=== PATIENT | female | born 1950 | race Hispanic/Latino ===

== ENCOUNTER 2017-07-20 19:18 | Emergency (ER) | payer MEDICARE ==
[~2017-07-20 19:18] MED LIST: LEVO500T2 PO; METO-409 PO
[2017-07-20 19:52] LABS: BASOPHILS % (AUTO) 0.3 % (0.0-5.0); EOSINOPHILS % (AUTO) 4.6 % (0.0-8.0); HEMATOCRIT 42.9 % (36-48); LYMPHOCYTES % (AUTO) 18.2 % (21.0-51.0); MEAN CORPUSCULAR HEMOGLOBIN 30.7 pg (27.0-33.0); MEAN CORPUSCULAR HGB CONC 34.7 g/dL (32.0-36.0); MEAN CORPUSCULAR VOLUME 88.5 fL (79-99); MONOCYTES % (AUTO) 5.9 % (3.0-13.0); PLATELET COUNT (AUTO) 200 K/uL (130-400); RED BLOOD CELL COUNT(AUTO) 4.84 MIL/uL (4.00-5.50); RED CELL DISTRIBUTION WIDTH 13.2 % (11.0-15.5); WHITE BLOOD COUNT (AUTO) 10.4 K/uL (4.8-10.8)
[2017-07-20] MEDS ORDERED: ONDANSETRON ODT 4 MG TAB ONE (19:59)
[2017-07-20] MEDS ORDERED: ASPIRIN 325 MG TABLET ONE (19:59)
[2017-07-20 20:05] LABS: INR 0.98 (0.85-1.15); PARTIAL THROMBOPLASTIN TIME 24.8 SEC (26.3-35.5); POTASSIUM 3.5 mmol/L (3.5-5.1); PROTHROMBIN TIME 10.3 SEC (9.6-11.6)
[2017-07-20 20:15] LABS: RAPID GROUP A STREP NEGATIVE (NEGATIVE)
[2017-07-20 20:24] LABS: B-TYPE NATRIURETIC PEPTIDE < 5 pg/mL (0-100)
[2017-07-20] MEDS ORDERED: LIDOCAINE HCL 2% VISCOUS 15 ML UDCUP ONE (20:29)
[2017-07-20] MEDS ORDERED: MAG HYDROX/AL HYDROX/SIMETH ES 30 ML SUSP UDCUP ONE (20:30)
[2017-07-20 20:34] LABS: ALBUMIN 4.1 g/dL (3.5-5.0); BILIRUBIN,TOTAL 0.7 mg/dL (0.2-1.0); CREATINE KINASE MB 2.1 ng/mL (0.5-3.6); TOTAL PROTEIN, SERUM 8.2 g/dL (6.0-8.3)
== END 2017-07-20 21:23 | disposition home or self-care (01) ==
LOC: EDH 19:18
DX: K21.9 Gastro-esophageal reflux disease without esophagitis (principal); K29.70 Gastritis, unspecified, without bleeding; R07.9 Chest pain, unspecified; I10 Essential (primary) hypertension; Z90.49 Acquired absence of other specified parts of digestive tract
CPT/HCPCS: 36415; 71045; 80053; 82550; 82553; 83605; 83690; 83874; 83880; 84484; 85025; 85610; 85730; 87804; 87880; 93005; 94761

== ENCOUNTER → 2018-05-20 | Outpatient (CLI) | payer MEDICARE | END | disposition home or self-care (01) | LOC: RAH 13:08 | PROVIDERS: ATTEND Family Medicine | DX: N60.01 Solitary cyst of right breast (principal); N60.02 Solitary cyst of left breast | CPT/HCPCS: 76641; 77066 ==

== ENCOUNTER 2019-03-15 09:10 | Emergency (ER) | payer MEDICARE ==
[2019-03-15 09:41] LABS: BASOPHILS % (AUTO) 0.7 % (0.0-5.0); EOSINOPHILS % (AUTO) 1.1 % (0.0-8.0); HEMATOCRIT 44.3 % (36-48); LYMPHOCYTES % (AUTO) 4.2 % (21.0-51.0); MEAN CORPUSCULAR HGB CONC 33.6 g/dL (32.0-36.0); MEAN CORPUSCULAR VOLUME 89.1 fL (79-99); MONOCYTES % (AUTO) 10.8 % (3.0-13.0); NEUTROPHILS % (AUTO) 82.7 % (40.0-77.0); PLATELET COUNT (AUTO) 215 K/uL (130-400); RED BLOOD CELL COUNT(AUTO) 4.97 MIL/uL (4.00-5.50); RED CELL DISTRIBUTION WIDTH 12.9 % (11.0-15.5); WHITE BLOOD COUNT (AUTO) 9.1 K/uL (4.8-10.8)
[2019-03-15 10:00] LABS: POTASSIUM 4.4 mmol/L (3.5-5.1)
[2019-03-15 10:01] LABS: APPEARANCE,URINE CLOUDY (CLEAR); BILIRUBIN,URINE NEGATIVE (NEGATIVE); COLOR,URINE YELLOW (YELLOW); GLUCOSE, URINE (UA) NEGATIVE (NEGATIVE); KETONES,URINE NEGATIVE (NEGATIVE); LEUKOCYTE ESTERASE ,URINE LARGE (NEGATIVE); NITRATE,URINE NEGATIVE (NEGATIVE); OCCULT BLOOD,URINE TRACE-INTACT (NEGATIVE); PROTEIN,URINE 30 mg/dL (NEGATIVE)
[2019-03-15 10:03] LABS: BACTERIA,URINE Moderate /HPF (None Seen); RBC,URINE 0-1 /HPF (0-1)
[2019-03-15 10:05] LABS: ALBUMIN 4.2 g/dL (3.5-5.0); BILIRUBIN,TOTAL 0.4 mg/dL (0.2-1.0); TOTAL PROTEIN, SERUM 8.7 g/dL (6.0-8.3)
[2019-03-15] MEDS ORDERED: ONDANSETRON HCL 4 MG/2 ML VIAL ONE (10:09)
[2019-03-15] MEDS ORDERED: ACETAMINOPHEN 325 MG TAB ONE (10:09)
[2019-03-15] MEDS ORDERED: FAMOTIDINE/PF 20 MG/2 ML VIAL IV ONE (10:10)
[2019-03-15] MEDS ORDERED: SODIUM CHLORIDE 0.9% 1000ML 3,000 ML IV ONE (10:10)
[2019-03-15] MEDS ORDERED: KETOROLAC TROMETHAMINE 15MG/ML ONE (11:06)
[2019-03-15] MEDS ORDERED: OSELTAMIVIR PHOSPHATE 75 MG CAP ONE (11:08)
== END 2019-03-15 12:50 | disposition home or self-care (01) ==
LOC: EDH 09:10
DX: J10.1 Influenza due to other identified influenza virus with other respiratory manifestations (principal); B34.9 Viral infection, unspecified; R11.2 Nausea with vomiting, unspecified; R19.7 Diarrhea, unspecified; R53.81 Other malaise; R53.83 Other fatigue; I10 Essential (primary) hypertension
CPT/HCPCS: 36415; 80053; 81001; 83605; 84484; 85025; 87804 ×2; 93005; 96361; 96374; 96375; 99285; J1885; J2405; J3490; J7030

== ENCOUNTER → 2021-06-25 | Outpatient (CLI) | payer MEDICARE | LOC: RAH 08:28 | PROVIDERS: ATTEND Family Medicine | DX: M25.561 Pain in right knee (principal); M17.0 Bilateral primary osteoarthritis of knee | CPT/HCPCS: 73721 ==

== ENCOUNTER → 2023-07-25 | Outpatient (CLI) | payer MEDICARE | END | disposition home or self-care (01) | LOC: SHCH 10:00 | PROVIDERS: ATTEND Internal Medicine Cardiovascular Disease | DX: R94.31 Abnormal electrocardiogram [ECG] [EKG] (principal); I08.0 Rheumatic disorders of both mitral and aortic valves | CPT/HCPCS: 93306 ==

== ENCOUNTER → 2023-07-31 | Outpatient (CLI) | payer OTHER | END | disposition home or self-care (01) | LOC: RAH 10:03 | PROVIDERS: ATTEND Internal Medicine Cardiovascular Disease | DX: Z13.6 Encounter for screening for cardiovascular disorders (principal); R94.31 Abnormal electrocardiogram [ECG] [EKG] | CPT/HCPCS: 75571 ==